=== PATIENT | female | born 1990 | race Asian ===

== ENCOUNTER 2019-05-31 20:07 | Inpatient (IN) | payer OTHER ==
--- NOTE | 2019-05-31 20:23 | ED ---
Psychiatric Complaint - HPI Summary HPI Summary: This patient is a 29 year old F brought to ED as a 945 with a history of major depressive disorder on Prozac with a chief complaint of suicidal ideation since this morning. Patient reports she had a difficult time and personal situation which caused her much emotional pain. Patient states that she had previously had an unhealthy relationship with a boy, so she broke off the relationship. Today, the ex-boyfriend told the patient that he is going to start dating someone else, which caused her emotional pain. She reports she does not want to deal with this pain anymore, which is why she feels suicidal. Today, patient walked towards a bridge and stood there for a while but she did not make any attempt to jump. Patient reports that staring off the bridge makes her feel calmer. Afterwards, patient went to group therapy and was sent here from there. Patient has a PMHx of suicide attempt when she was a teenager. Patient denies HI , hallucinations. Patient reports mild headache this afternoon that is since resolved. The patient rates the pain 0/10 in severity. Symptoms aggravated by nothing. Symptoms alleviated by nothing. Medications reviewed. Allergies noted. - History Of Current Complaint Time Seen by Provider: 05/31/19 20:08 Hx Obtained From: Patient, EMS Onset/Duration: Sudden Onset, Lasting Hours - Since this morning Timing: Constant Severity Initially: Mild Severity Currently: Mild Character: Depressed Aggravating Factor(s): Nothing Alleviating Factor(s): Nothing Associated Signs And Symptoms: Positive: Negative - HI. Negative: Hallucinating Related History: Positive For: Prior Psychiatric Issues Has Suicidal: Reports: Thoughts. Denies: With A Plan Has Homicidal: Denies: Thoughts - Allergies/Home Medications Allergies/Adverse Reactions: Allergies Allergy/AdvReac Type Severity Reaction Status Date / Time No Known Allergies Allergy Verified 05/31/19 21:00 Home Medications: Home Medications FLUoxetine CAP* [Prozac CAP*] 10 mg PO DAILY 05/31/19 [History Confirmed ] PMH/Surg Hx/FS Hx/Imm Hx Sensory History: Denies: Hx Legally Blind, Hx Deafness Opthamlomology History: Denies: Hx Legally Blind EENT History: Denies: Hx Deafness Psychiatric History: Reports: Hx Depression, Hx Suicide Attempt - Surgical History Surgery Procedure, Year, and Place: Liposuction - Family History Known Family History: Negative: Seizure Disorder - Social History Alcohol Use: None Hx Substance Use: No Substance Use Type: Reports: None Hx Tobacco Use: Yes Smoking Status (MU): Former Smoker Review of Systems Positive: Headache Psychological: Other - SI Positive: Depressed, Other - Neg: HI, hallucinations All Other Systems Reviewed And Are Negative: Yes Physical Exam - Summary Physical Exam Summary: General: Well appearing, no distress Cardiovascular: Skin is well perfused Pulmonary: No respiratory distress, no tachypnea Abdomen: Non-distended Skin: Warm, pink, dry Psych: Normal affect Neuro: A&Ox3 Back: no CVA tenderness. Triage Information Reviewed: Yes Vital Signs On Initial Exam: Initial Vitals Temp Pulse Resp BP Pulse Ox 97.6 F 75 18 118/67 100 05/31/19 20:42 05/31/19 20:42 05/31/19 20:42 05/31/19 20:42 05/31/19 20:42 Vital Signs Reviewed: Yes Procedures - Sedation Patient Received Moderate/Deep Sedation with Procedure: No Diagnostics - Laboratory Result Diagrams: 05/31/19 20:43 05/31/19 20:43 Lab Statement: Any lab studies that have been ordered have been reviewed, and results considered in the medical decision making process. Re-Evaluation - Re-Evaluation First Eval Re-Evaluation Time: 20:24 Comment: Patient is medically clear for MHE. Course/Dx - Course Course Of Treatment: Patient is here with suicidal ideation. Patient was medically cleared by myself. Patient was signed out to Dr. Lopez pending mental health evaluation - Differential Dx/Clinical Impression Provider Diagnosis: Depression Discharge ED - Sign-Out/Discharge Documenting (check all that apply): Sign-Out Patient Signing out patient TO: Sylwia Lopez - Discharge Plan - Attestation Statements Document Initiated by Scribe: Yes Documenting Scribe: Jhonathan Alvares Provider For Whom Jordi is Documenting (Include Credential): Stefan Oliver MD Scribe Attestation: Jhonathan Hollins, scribed for Stefan Oliver MD on 05/31/19 at 2142. Scribe Documentation Reviewed: Yes Provider Attestation: The documentation as recorded by the [email or web address] accurately reflects the service I personally performed and the decisions made by me, Stefan Oliver MD Status of Scribe Document: Viewed
[2019-05-31 20:48] LABS: ABS Basophils 0.1 10^3/ul (0-0.2); ABS Lymphocytes 1.5 10^3/ul (1.0-4.8); ABS Monocytes 0.4 10^3/ul (0-0.8); ABS Neutrophils 4.1 10^3/ul (1.5-7.7); Eosinophil % 0.2 %; Hematocrit 35 % (35-47); Hemoglobin 12.2 g/dL (12.0-16.0); Lymphocyte % 24.4 %; Mean Corpuscular HGB Conc 35 g/dL (31-36); Mean Corpuscular Hemoglobin 33 pg (27-31); Mean Corpuscular Volume 95 fL (80-97); Mean Platelet Volume 8.8 fL (7.4-10.4); Nucleated Red Blood Cells % 0.1; Platelet Count 240 10^3/uL (150-450); Red Blood Count 3.67 10^6 /uL (3.70-4.87); Red Cell Distribution Width 13 % (10-15)
[2019-05-31 21:08] LABS: ALT 11 U/L (7-52); AST 16 U/L (13-39); Albumin 4.8 g/dL (3.2-5.2); Albumin/Globulin Ratio 1.5 (1-3); Alkaline Phosphatase 43 U/L (34-104); Anion Gap 9 mmol/L (2-11); BUN/Creatinine Ratio 15.3 (8-20); Blood Urea Nitrogen 9 mg/dL (6-24); CO2 Carbon Dioxide 25 mmol/L (22-32); Calcium 9.8 mg/dL (8.6-10.3); Chloride 104 mmol/L (101-111); EGFR African American 147.9 (>60); EGFR Non-African American 122.3 (>60); Globulin 3.1 g/dL (2-4); Glucose 97 mg/dL (70-100); Potassium 3.7 mmol/L (3.5-5.0); Sodium 138 mmol/L (135-145); Total Protein 7.9 g/dL (6.4-8.9)
[2019-05-31 21:12] LABS: HCG Pregnancy < 0.60 mIU/mL
[2019-05-31 21:22] LABS: Acetaminophen < 15 mcg/mL; Alcohol < 10 mg/dL (<10); Salicylate < 2.50 mg/dL (<30)
[2019-05-31 21:43] LABS: Urine Appearance Clear; Urine Bilirubin Negative (Negative); Urine Blood Negative (Negative); Urine Color Yellow; Urine Glucose Negative (Negative); Urine Ketones 2+ (Negative); Urine Nitrite Negative (Negative); Urine Protein Negative (Negative); Urine Specific Gravity 1.015 (1.010-1.030); Urine Urobilinogen Negative (Negative)
[2019-05-31 21:46] LABS: Urine Bacteria Absent (Absent); Urine Red Blood Cell Trace(0-2/hpf) (Absent); Urine Squamous Epithelial Cell Present (Absent); Urine White Blood Cell 3+(>20/hpf) (Absent)
[2019-05-31 22:00] LABS: Urine Benzodiazepine Screen None Detected (None Detect); Urine Opiates Screen None Detected (None Detect)
--- NOTE | 2019-05-31 23:42 | ED ---
Progress - Progress Note Progress Note: Patient is received as a sign-out from Dr. Oliver at 05/31/19 2200 shift change pending MHE and disposition of this mental health patient. Re-Evaluation - Re-Evaluation First Eval Re-Evaluation Time: 20:24 Comment: Patient is medically clear for MHE. Course/Dx - Course Course Of Treatment: Patient is received as a sign-out from Dr. Oliver at 2200 shift change pending MHE and disposition of this mental health patient. - Diagnoses Provider Diagnoses: Major depression - Provider Notifications Discussed Care Of Patient With: Flavio Chung Time Discussed With Above Provider: 22:30 Instructed by Provider To: Other - Patient's case was reviewed by Dr. Chung, patient will be admitted to [facility] psych Discharge ED - Sign-Out/Discharge Documenting (check all that apply): Patient Departure - admit , Receiving Sign- Out Receiving patient FROM: Stefan Oliver All imaging exams completed and their final reports reviewed: No Studies - Discharge Plan Condition: Guarded Disposition: PSYCHIATRIC FACILITY-[facility] - Billing Disposition and Condition Condition: GUARDED Disposition: Psychiatric Facility [facility] - Attestation Statements Document Initiated by Scribe: Yes Documenting Scribe: ITA LARKIN Provider For Whom Scribe is Documenting (Include Credential): BEAU ANGUIANO MD Scribe Attestation: ITA Hollins scribed for BEAU ANGUIANO MD on 06/01/19 at 0341. Scribe Documentation Reviewed: Yes Provider Attestation: The documentation as recorded by the ITA ledbetter accurately reflects the service I personally performed and the decisions made by me, BEAU ANGUIANO MD Status of Scribe Document: Viewed
[2019-06-01] MEDS ORDERED: Acetaminophen TAB* 325 MG PO PRN (01:45)
[2019-06-01] MEDS ORDERED: Al Hydrox/Mg Hydrox/Simet LIQ* 30 ML UDC PO PRN (01:45)
[2019-06-01 08:23] LABS: HDL Cholesterol 62.4 mg/dL
[2019-06-01] MEDS ORDERED: FLUoxetine CAP* 10 MG PO SCH (09:00)
[2019-06-01] MEDS: Vitamin THERAPEUTIC TAB PO SCH (10:59)
[2019-06-01] MEDS ORDERED: FLUoxetine CAP* 10 MG PO ONE (12:00)
--- NOTE | 2019-06-01 12:02 | HP ---
H&P (Free Text) History and Physical: Justification for admission: Immediate Safety. CC "My therapist sent me" The patient was brought to [facility] by EMS after she went to her therapist at [facility] and expressed that she was thinking of jumping into the gorge or cutting her artery. The patient is and recently broke off another relationship that she had with one of her classmates, who then told her about another girl he was dating. She felt sad and hurt by that and went to [facility] and expressed suicidal ideation. At that time she reported having thoughts of doubt and no longer wanting to live. She reported not wanting to be in the [facility] and is requesting discharge. Denied access to firearms or stockpiles of medications. Upon evaluation the patient denied currently being suicidal and stated " Thats not me I want to live , I said that because I was hurt at the time." She reported having excessive sleep and decreased appetite. The patient denied homicidal ideation intent or plan. The patient denied auditory and/ or visual hallucinations. Depression Patient reported feeling depressed with having feelings of hurt and at times is unable to experience pleasure in the things. She denied having crying spells , feeling empty inside, feelings of hopelessness , and worthlessness. Reported diminished appetite. Denied interruption of sleep , or feeling tired throughout the day. Denied loss of energy or lack of motivation to complete tasks. Denied overwhelming feelings of guilt or decreased concentration. Denied recurrent thoughts of . Denied thoughts that they would be better off . Anxiety Reported feeling restless, high strung, or worrying too much most of the time. She denied panic attacks Bipolar Denied symptoms of lyric such as having many ideas at once. Denied increased talkativeness where no one can interrupt. Denied feeling irritable most of the time while having an persistent abundance of energy most of the day without the use of energy drinks, stimulants, or recreational drug use. Denied an increase in intensity in goal directed activities. Denied having the decreased need to sleep for days , having prolonged elevated mood , or feeling on top of the world. Denied impulsive risky sexual encounters. Denied spending money recklessly , going on spending sprees wiping out savings. Denied impulsively traveling out of town or country, having super mari, and unrealistic wealth or fame. Psychosis Does not endorse hearing things that other people do not hear or seeing things other people do not see. Denied feeling that TV is making references. Denied feeling that people are spying , following , or reading their thoughts. Phobias: Patient denied having excessive fear of a particular thing or situation. Eating disorders: Patient denied having excessive eating habits or feelings of guilt after eating. Denied repeated episodes of self induced vomiting after eating. PTSD Denied flashbacks, nightmares and avoidance of a prior traumatic event. PAST PSYCHIATRIC HISTORY: Prior Diagnosis : Depression and anxiety History of past Psychiatric Hospitalizations: No prior psychiatric admission. History of past suicide/homicide attempts : 1 past suicide attempt of going to jump off a balcony , superficially cut her wrist. Denied history of violence. Outpatient follow-up: [facility] Medications: Past trials of medications include Prozac 10mg daily started in April 2019 Guardianship: None. FAMILY HISTORY: - Suicide: Denied family history of suicide. - Mental illness: Denied a history of mental health in immediate family members. - Substance abuse: Denied substance abuse among family members. SUBSTANCE ABUSE HISTORY: - EtOH: Denied recent use. No associated legal issues, blackouts, seizures, DTs or past hospitalizations due to alcohol. - Tobacco: Denied - Cannabis: Denied - Heroin: Denied - Cocaine: Denied - Substance abuse treatment: Denied past substance abuse treatment SOCIAL HISTORY: - Denied a history of childhood physical and or sexual abuse Born in [place] and raised by both parents. - Education: [employer] student. No history of special education. - Living situation: Currently lives in [facility] - Relationship: and has no children. - Legal history: Denied - service history: Denied PAST MEDICAL HISTORY: Denied heart disease, diabetes, cancer and/ or other medical conditions. - Allergies: Denied drug or other allergies. Physical Exam: Please see ED note Mental Status Exam on Admission APPEARANCE : 29 year old Female who appears stated age. Patient is not malodourous, and appears to have fair hygiene and grooming. BEHAVIOR: Cooperative , calm EYE CONTACT: Fair PSYCHOMOTOR ACTIVITY: No psychomotor agitation or retardation. MOVEMENTS: No abnormal movements observed. SPEECH : Normal rate, rhythm, volume and tone. MOOD : " Okay" AFFECT : Type is anxious, Range is restricted Mood Incongruent THOUGHT PROCESS: Formulated and organized in a logical, linear goal directed manner. No flight of ideas, neologism (made up words) , perseveration , tangential , loose associations , or circumstantiality, Poverty of thought, thought blocking THOUGHT CONTENT: no delusions, obsessions, phobias or preoccupations. PERCEPTION: No current auditory or visual hallucinations. Doesnt appear to be responding to internal cues. No evidence of depersonalization , de-realization, or illusions SUICIDALITY suicidal ideation with plan HOMICIDALITY Denied homicidal ideation, intent or plan. Insight/judgment: Poor insight and judgment ORIENTATION: Oriented to self, location, and time. Diagnosis on Admission: Major Depressive Disorder. Assessment: 29 year old Female with a history of anxiety and depression presented to the emergency department with suicidal ideation and plan to jump into the gorge and was admitted to the B[facility] at [facility]. Plan #Admit to BSU, Q15 minute observation. Start regular diet. Encourage participation in group therapy and psychoeducation #Patient evaluated in ED and was determined by the emergency room Physician to be medically fit for admission to the BSU. # Justification for Admission: For immediate safety per outlined in the [facility] Hygiene Code. # The patient requires psychiatric inpatient admission at this time to assure safety, receive treatment and work toward stabilization. # Labs ordered: CBC, CMP, UDS, TSH, HBA1c, TSH, Toxicology screen, Urine analysis, and lipid profile. # Plan to monitor for metabolic changes by weight, HBA1c, glucose, and lipid panel # B-HCG was ordered and results are negative. # Obtain collateral information once release is signed. # Collaboration with Tech Writer Aydee Núñez #Goals before discharge include: Psychiatric Stabilization # To set up follow up appointment with [facility] Patient strengths: Stable housing and medication compliant Tentative Discharge: Tomorrow The risks, benefits, and alternative treatment options were discussed as well as the risks of refusing treatment. After this discussion and an acknowledgement of this understanding was made. A risk/ benefit assessment of treatment was considered and discussed with the patient. When comparing the risks of treatment with the dangers of not receiving treatment, the benefits of treatment outweigh the treatment risks at this time. Risks of allergy, suicidal ideation, behavioral changes, dystonia, rashes, electrolyte imbalances, movement disorders, cardiac conduction changes, serotonin syndrome, metabolic risks were among some of the risks discussed. Sodium 138 mmol/L (135-145) 05/31/19 20:43 Potassium 3.7 mmol/L (3.5-5.0) 05/31/19 20:43 BUN 9 mg/dL (6-24) 05/31/19 20:43 Creatinine 0.59 mg/dL (0.51-0.95) 05/31/19 20:43 Hemoglobin A1c 5.3 % (4.0-5.6) 06/01/19 07:54 Calcium 9.8 mg/dL (8.6-10.3) 05/31/19 20:43 AST 16 U/L (13-39) 05/31/19 20:43 ALT 11 U/L (7-52) 05/31/19 20:43 Triglycerides 65 mg/dL 06/01/19 07:54 Cholesterol 152 mg/dL 06/01/19 07:54 LDL Cholesterol 77 mg/dL 06/01/19 07:54
--- NOTE | 2019-06-01 16:18 | PN ---
BS[facility]: Group Therapy Note - Service Type Service Type: [id number] Group Psychotherapy - Medication Education Group: Patient was attentive and participatory in group, and remained in good behavioral control. Patient expressed positive insights regarding relevant treatment interventions. Patient stated understanding of material discussed and had appropriate questions.
[2019-06-02 08:44] VITALS: BP 95/56
[2019-06-02] MEDS ORDERED: FLUoxetine CAP* 20 MG PO SCH (09:00)
[2019-06-02] MEDS ORDERED: FLUoxetine CAP* 10 MG PO SCH (09:00)
--- NOTE | 2019-06-02 11:08 | DS ---
Subjective - Subjective Service Types: [id number] [facility] Day [facility] complex over 30 min Discharge Date: 06/02/19 Subjective: CC: " I am not going to hurt myself" Patient looks forward to catching up on school work and meeting with her professors. The patient was seen and evaluated before discharge today. The patient reported having adequate appetite and sleep. The patient reported participating in some of the day groups. Per nursing no behavioral issues or overnight events reported. Patient reported tolerating medications without side effects. Justification for admission: Immediate Safety. CC "My therapist sent me" The patient was brought to [facility] by EMS after she went to her therapist at [facility] and expressed that she was thinking of jumping into the gorge or cutting her artery. The patient is and recently broke off another relationship that she had with one of her classmates, who then told her about another girl he was dating. She felt sad and hurt by that and went to [facility] and expressed suicidal ideation. At that time she reported having thoughts of doubt and no longer wanting to live. She reported not wanting to be in the BSU and is requesting discharge. Denied access to firearms or stockpiles of medications. Upon evaluation the patient denied currently being suicidal and stated " Thats not me I want to live , I said that because I was hurt at the time." She reported having excessive sleep and decreased appetite. The patient denied homicidal ideation intent or plan. The patient denied auditory and/ or visual hallucinations. Depression Patient reported feeling depressed with having feelings of hurt and at times is unable to experience pleasure in the things. She denied having crying spells , feeling empty inside, feelings of hopelessness , and worthlessness. Reported diminished appetite. Denied interruption of sleep , or feeling tired throughout the day. Denied loss of energy or lack of motivation to complete tasks. Denied overwhelming feelings of guilt or decreased concentration. Denied recurrent thoughts of . Denied thoughts that they would be better off . Anxiety Reported feeling restless, high strung, or worrying too much most of the time. She denied panic attacks Bipolar Denied symptoms of lyric such as having many ideas at once. Denied increased talkativeness where no one can interrupt. Denied feeling irritable most of the time while having an persistent abundance of energy most of the day without the use of energy drinks, stimulants, or recreational drug use. Denied an increase in intensity in goal directed activities. Denied having the decreased need to sleep for days , having prolonged elevated mood , or feeling on top of the world. Denied impulsive risky sexual encounters. Denied spending money recklessly , going on spending sprees wiping out savings. Denied impulsively traveling out of town or country, having super mari, and unrealistic wealth or fame. Psychosis Does not endorse hearing things that other people do not hear or seeing things other people do not see. Denied feeling that TV is making references. Denied feeling that people are spying , following , or reading their thoughts. Phobias: Patient denied having excessive fear of a particular thing or situation. Eating disorders: Patient denied having excessive eating habits or feelings of guilt after eating. Denied repeated episodes of self induced vomiting after eating. PTSD Denied flashbacks, nightmares and avoidance of a prior traumatic event. PAST PSYCHIATRIC HISTORY: Prior Diagnosis : Depression and anxiety History of past Psychiatric Hospitalizations: No prior psychiatric admission. History of past suicide/homicide attempts : 1 past suicide attempt of going to jump off a balcony , superficially cut her wrist. Denied history of violence. Outpatient follow-up: [facility] Medications: Past trials of medications include Prozac 10mg daily started in April 2019 Guardianship: None. FAMILY HISTORY: - Suicide: Denied family history of suicide. - Mental illness: Denied a history of mental health in immediate family members. - Substance abuse: Denied substance abuse among family members. SUBSTANCE ABUSE HISTORY: - EtOH: Denied recent use. No associated legal issues, blackouts, seizures, DTs or past hospitalizations due to alcohol. - Tobacco: Denied - Cannabis: Denied - Heroin: Denied - Cocaine: Denied - Substance abuse treatment: Denied past substance abuse treatment SOCIAL HISTORY: - Denied a history of childhood physical and or sexual abuse Born in [place] and raised by both parents. - Education: [employer] student. No history of special education. - Living situation: Currently lives in [facility] - Relationship: and has no children. - Legal history: Denied - service history: Denied PAST MEDICAL HISTORY: Denied heart disease, diabetes, cancer and/ or other medical conditions. - Allergies: Denied drug or other allergies. Physical Exam: Please see ED note Mental Status Exam on Admission APPEARANCE : 29 year old Female who appears stated age. Patient is not malodourous, and appears to have fair hygiene and grooming. BEHAVIOR: Cooperative , calm EYE CONTACT: Fair PSYCHOMOTOR ACTIVITY: No psychomotor agitation or retardation. MOVEMENTS: No abnormal movements observed. SPEECH : Normal rate, rhythm, volume and tone. MOOD : " Okay" AFFECT : Type is anxious, Range is restricted Mood Incongruent THOUGHT PROCESS: Formulated and organized in a logical, linear goal directed manner. No flight of ideas, neologism (made up words) , perseveration , tangential , loose associations , or circumstantiality, Poverty of thought, thought blocking THOUGHT CONTENT: no delusions, obsessions, phobias or preoccupations. PERCEPTION: No current auditory or visual hallucinations. Doesnt appear to be responding to internal cues. No evidence of depersonalization , de-realization, or illusions SUICIDALITY suicidal ideation with plan HOMICIDALITY Denied homicidal ideation, intent or plan. Insight/judgment: Poor insight and judgment ORIENTATION: Oriented to self, location, and time. Diagnosis on Admission: Major Depressive Disorder. Diagnosis on Discharge:Major Depressive Disorder in partial remission. Condition at the time of discharge: At the time of discharge patient showed improvement of sleep and appetite. The patient was not a danger to self or others. The patient denied suicidal ideation, intent or plan. The patient denied homicidal targets, ideation, intent or plan. This patient participated in psychosocial rehabilitation and gained some insight into problems. The patient gained insight into mental illness, triggers, and treatment. The patient took medication as prescribed. The patient denied side effects of medication and objective signs of side effects were not evident. Therapy Resources were offered to the patient. Patient was given a supply of prescriptions at the time of discharge. The patient plans to attend follow up care with the follow up arrangements that were discussed and put in place. Patient was asked to keep appointments as scheduled, take medication as prescribed, have routine follow up care with their primary care physician and refrain from any use of alcohol or drugs. Objective - General Observations Appearance: Neat Appears Stated Age: Yes Stature: WNL Posture: WNL Eye Contact: Average Behavior/Activity: WNL - Interaction Observations Attitude Towards Examiner: Cooperative Stated Mood: Euthymic Affect: Full Speech Pattern/Tone: Clear Thought Process: Coherent Perception: WNL Thought Content: WNL Hallucination Type: None Delusion Type: None - Cognitive Function Orientation: A&O x 4 Level of Consciousness: Awake Cognition: WNL - Medication Compliance Cooperative with Inpatient Medication Regimen: Yes - Group Participation Participates in Group Activities: Yes Treatment Course & Assessment Clinical Course & Impression: Hospital course part A: 29 year old Female with a history of anxiety and depression presented to the emergency department with suicidal ideation and plan to jump into the gorge and was admitted to the BSU at [facility]. Hospital course part B: Labs ordered included CBC, CMP, UDS, TSH, HBA1c, TSH, B HCG, Toxicology screen, Urine analysis, and lipid profile. Labs were reviewed and vital signs were monitored during the course of admission. The patient was admitted to the adult behavioral unit and placed on 15 minute check for safety. At a later time the patient was on Q30 minute observation and staff pass privileges. With those limits being extended, patient was safe on all checks and there were no occurrence of behavioral incidents. The patient did well on the unit and went to groups. The patient maximized the therapeutic value offered by the inpatient psychiatric care environment. Interacted with peers had adequate sleep and regular appetite. Tolerated medication changes without side effects. Group therapy and services were offered. The risks, benefits, and alternative treatment options were discussed as well as of the risks of refusing treatment. Treatment associated risks discussed. After this discussion the patient made an acknowledgement of this understanding. Follow up care appointments were put in place. HBA1c, glucose, and lipid panel was ordered and reviewed to monitor metabolic status. The patient was informed not to abruptly stop or start new medications before consulting with a medical professional. Improvements shown from the time of admission include: Improved affect, sleep and decrease in anxiety. The patient expressed readiness for discharge home. The patient presents with a broader range of affect, and the absence of depressed mood, delusions, perceptual disturbance. The patient denied suicidal and or homicidal ideation intent or plan. Overall, the patient responded well to inpatient treatment as evidenced by their report of strengthening of coping mechanisms, reduced distress, and more positive outlook on circumstances. Of note there was an improvement of recognizing how emotional state can effect mood and behavior. Safety precautions were put in place which included involving the patient to closely monitor for changes in mental state. In addition, implementing follow up care, screening for the need to remove/securing firearms, weapons and stockpile of medications. Patient instructed to immediately call 911 should any safety concerns arise. B-HCG is negative for current . She was informed of the risks associated with medication in . In the event that she becomes in the future and was advised to talk with her outpatient healthcare provider about starting or stopping medications during . The patient was advised of the 24 hour / 7 days a week availability of the emergency room and to call 911 in the event of an emergency such as being suicidal and/ or homicidal. The patient was informed of the contact information for [facility], Suicide Prevention and Crisis Services, National Suicide Prevention Lifeline, [facility], Alcoholics Anonymous, and [facility]. Medication adjustment included increasing prozac from 10mg daily to 30mg daily. Patient tolerated this change well. Patient plans to finish course work over the weekend and meet with her professors. At this time both the patient is eager for discharge and are in agreement with the discharge plan and can receive care in the less restrictive outpatient setting. The patient was advised on how the days following discharge can be a vulnerable period and to look out for warning signs associated with decompensation and progression of mental illness. Patient was not assaultive or a behavioral problem during the course of admission. The patient showed good hygiene and was able to carry out activities of daily living. Patient will be discharged to live at home. Follow up appointment at [facility] on Wednesday. Patient informed of follow up appointment times. See more details for follow up care in the discharge plan. Risk factors were mitigated by Implemented precautionary safety measures by confirming no stockpiles of medications and no access to firearms, provided mental health treatment, stabilization of depressive features, provided resources to outpatient services, as well as provided a supportive care environment and therapy resources during the course of hospitalization. Safety plan was reviewed with the patient and treatment team. The patient verbalized options they would pursue to ensure their safety in the event they feel unsafe and not doing well. Patient was provided with mechanisms of coping and adapting to recent relationship difficulties. Risk factors: limited support system, history of a mental health condition, recent relationship difficulties, Prior history of a suicide attempt. History of self injurious behavior, recent hospitalization. Protective factors: , Female, At discharge patient did not have suicidal and or homicidal ideation, intent or plan. No history of service. Currently no feelings of hopelessness, not in an occupation of social isolation, doesnt have multiple medical conditions, no family history of suicide, doesnt have access to firearms. Doesnt have command hallucinations and or psychotic features at this time. No current substance abuse. No current alcohol abuse. Not an anniversary of a loss of a loved one. Currently future orientated. Patient engaged in treatment and compliant with medication. No barriers to seek mental health treatment. Not incarcerated. Not middle or older age, doesnt have cultural belief that supports suicide. Patient does not have a recent loss of someone close that by suicide. Sodium 138 mmol/L (135-145) 05/31/19 20:43 Potassium 3.7 mmol/L (3.5-5.0) 05/31/19 20:43 BUN 9 mg/dL (6-24) 05/31/19 20:43 Creatinine 0.59 mg/dL (0.51-0.95) 05/31/19 20:43 Hemoglobin A1c 5.3 % (4.0-5.6) 06/01/19 07:54 Calcium 9.8 mg/dL (8.6-10.3) 05/31/19 20:43 AST 16 U/L (13-39) 05/31/19 20:43 ALT 11 U/L (7-52) 05/31/19 20:43 Triglycerides 65 mg/dL 06/01/19 07:54 Cholesterol 152 mg/dL 06/01/19 07:54 LDL Cholesterol 77 mg/dL 06/01/19 07:54 Merits Inpatient Hospitalization: No Clear for Discharge: Adequate Clinical Respons Discharge Planning - Discharge Planning Discharge Plan: Outpatient Follow Up Outpatient Program: Counseling/Psych Services at [facility] Recommendations for Continuing Care: Medication Management Medications: Current Medications Acetaminophen (Tylenol Tab*) 650 mg PO Q4H PRN PRN Reason: PAIN or TEMP > 101 F Al Hydrox/Mg Hydrox/Simethicone (Maalox Plus*) 30 ml PO Q4H PRN PRN Reason: INDIGESTION Fluoxetine HCl (Prozac Cap*) 30 mg PO DAILY LYNN Multivitamins (Theragran Tab*) 1 tab PO DAILY LYNN Last Admin: 06/01/19 10:59 Dose: 1 tab Discharge Planning: Prescriptions provided for discharge [x] Yes [] No Follow up care details as per social work arrangements. Patient response to discharge plan: [x] eager for discharge [] agreeable with discharge plan [] ambivalent about discharge [] disagrees with discharge today
[2019-06-02] MEDS: Vitamin THERAPEUTIC TAB PO SCH (11:51)
== END 2019-06-02 12:30 | disposition home or self-care (01) | DRG 881 ==
LOC: ED 20:07 → BSU 23:46
PROVIDERS: ADMIT Psychiatry & Neurology Psychiatry; ATTEND Psychiatry & Neurology Psychiatry
DX: F32.9 Major depressive disorder, single episode, unspecified (principal); R45.851 Suicidal ideations; F41.9 Anxiety disorder, unspecified; Z79.899 Other long term (current) drug therapy
CPT/HCPCS: 36415; 80053; 80061; 80307; 80320; 80329; 81003; 81015; 83036; 84702; 85025; 87086; 90853; 99222; 99238; 99284; A9270-GY; G0480